=== PATIENT | female | born 2000 | race Caucasian/White ===

== ENCOUNTER 2025-01-28 09:27 | Outpatient (AMB) | payer OTHER, SELFPAY ==
[2025-01-28 09:45] VITALS: BP 120/72; PULSE 104; RESP 20; TEMP 36.4; O2SAT 97; BMI 28.3
--- NOTE | 2025-01-28 09:45 | AMB.OBINITIA ---
Vital Signs 01/28/25 09:45 Height 1.68 m Height Method Measured Weight 79.605 kg Weight Measurement Method Standing Scale BMI 28.3 BP 120/72 Blood Pressure Source Automatic Cuff Blood Pressure Location Left Upper Arm Position Sitting Respiration 20 Pulse 104 H Pulse Source Monitor Temp 97.6 F Temp Source Oral Pulse Oximetry (%) 97 Oxygen Delivery Method Room Air Allergies/Home Meds Allergies & Medications Allergies No Known Allergies Allergy (Verified 01/28/25 09:46) Medication Reconciliation No Known Home Medications 01/28/25 [History Confirmed 01/28/25] Intake Visit Data Collection New Patient or Established: New Patient (never been to [facility]) Reason for Visit:: OB TRANSFER Seen by Clinical Staff ONLY (RN/MA): No [place] Rafting Guide Required: No Do You Feel Safe at Home: Yes Authorities Contacted: N/A PCP or OBGYN visit in last 3 months: Yes Hx Now: Yes Are you currently on any form of Control: No Last menstrual period: 06/09/24 Pain Present Currently: No Pain Scale Used: Amaro-Archibald/Numerical Pain scale:: 0 Smoking Status Smoking Status: Never smoker Questionnaires Covid-19 Vaccine Questionnaire Has patient been vacinated for Covid-19 Have you been vacinated for Covid-19: No PHQ-9 PHQ-2 Over the last 2 weeks, how often have you been bothered by any of the following problems? 1. Little interest or pleasure in doing things: not at all 2. Feeling down, depressed, or hopeless: not at all Total score: 0 PHQ-9 3. Trouble falling or staying asleep, or sleeping too much: Not at all 4. Feeling tired or having little energy: Not at all 5. Poor appetite or overeating: Not at all 6. Feeling bad about yourself - or that you are a failure or have let yourself or your family down: Not at all 7. Trouble concentrating on things, such as reading the newspaper or watching television: Not at all 8. Moving or speaking so slowly that other people could have noticed? - Or the opposite - being so fidgety or restless that you have been moving around a lot more than usual: not at all 9. Thoughts that you would be better off or of hurting yourself in some way: Not at all Total score: 0 Source: Developed by Drs. Sylvester Abarca, Ericka Velarde, Anish Schmitt and colleagues, with an educational lisa from [employer]. Depression screen completed yes Social History Living Situation History Marital Status: Lives With: Family Housing: House Tobacco History Smoking Status: Never smoker Second Hand Smoke Exposure: No Alcohol History Alcohol Intake: Never Domestic Abuse History Do You Feel Safe at Home: Yes History of Present Illness HPI Narrative This is a 24-year-old 4 para 2 for new OB appointment. Patient is a transfer from an office in [place]. No records available at this time.. Patient states that she has her records on her phone and that she is willing to print those records out. Patient denies any problems with the . She had mentioned that the baby had been growing small initially but with the last ultrasound the baby was had a normal weight. Patient reports that she is O- and that she received RhoGAM. She also reports that at her last visit the 1 hour GTT was normal. Last period June 09, 2024. Estimated due date March 13, 2025. Today patient is 33 weeks and 6 days. Denies social habits. Denies surgery. Denies chronic illness. Patient reports good movement. Denies any complaints of labor. OB Initial Visit OB Flowsheet OB Flowsheet Initial Weight: Not Recorded Date <del>?</del> EGA Weight Edema CTX Effacement BP Fundal ht Pres Dilation Effacement Station Visit Note Alb Glu FHR Mov 01/28/25 <del>?</del> 33w 2d 79.605 kg absent absent 120/72 34 cephalic 24-year-old 4 para 2 for new OB appointment. Patient has been seen in [place] for care. No records available at this time. However patient reports that her records on her phone and she will get those printed out. Patient reports that her has been uneventful. Patient is Rh- and she received RhoGAM. Patient also reported that her 1 hour GTT and carrier screens were negative. That all her labs were normal. Return in 2 weeks visit 145 active Menstrual History Menstrual reliability: definite Flow: normal Menstrual regularity: regular Monthly: Yes Age at menarche: 10 On control pills at conception: No Associated symptoms (LMP): Reports fatigue and breast tenderness OB History : 4 Para: 2 Hx Total # of Abortions (Spontaneous & Elective): 1 # of Living Children: 2 Delivery History 1st : Child's name: KALEN date: 06/14/22 sex: female Delivery type: vaginal Delivery complications: NONE History of depression before or after : No 2nd : Child's name: MISSY date: 01/22/24 sex: female Delivery type: vaginal Delivery complications: NONE History of depression before or after : No Infection History & Risk Evaluation History of STDs: none HIV risk evaluation: low risk Hepatitis B risk evaluation: low risk Patient or partner has history of Genital Herpes: No Genetic Screening & History Genetic Screening/Teratology Counseling - Includes patient, baby's father, or anyone in either family with: 1. Patient's age 35 years or older as of estimated date of delivery: No 2. Thalassemia (Jordanian, Macanese, Mediterranean, or Background); MCV less than 80: No 3. Neural Tube Defect (Meningomyelocele, Spina Bifida, or Anencephaly): No 4. Congenital Heart Defect: No 5. Down Syndrome: No 6. Osmel-Sachs (Ashkenazi Voodoo, Cajun, Turkmen Jennings): No 7. Kirk Disease (Ashkenazi Voodoo): No 8. Familial Dysautonomia (Ashkenazi Voodoo): No 9. Sickle Cell Disease or Trait (): No 10. Hemophilia or other blood disorders: No 11. Muscular Dystrophy: No 12. Cystic Fibrosis: No 13. [place]'s Chorea: No 14. Mental Retardation/Autism: No 15. Other inherited genetic or chromosomal disorder: No 16. Maternal Metabolic Disorder (EG,TYPE 1 Diabetes, PKU): No 17. Patient or baby's father had a child with defects not listed above: No 18. Recurrent loss or a stillbirth: No 19. Medications (including supplements, vitamins, herbs or otc drugs)/illicit/recreational drugs/alcohol since last menstrual period: No 20. Any other: No Infection History 1. Live with someone with TB or exposed to TB: No 2. Rash or viral illness since last menstrual period: No 3. Hepatitis B,C: No Other (see comments) Source: [employer] [place] [place] Review of Systems Review of Systems Systems Reviewed: All systems reviewed, normal except as documented Constitutional Constitutional: Reports fatigue Endocrine Endocrine: Reports fatigue Exam General Limitations: no limitations General Appearance: alert, in no apparent distress, comfortable, cooperative, healthy appearing, well developed and well groomed Head Head exam: atraumatic, normocephalic and normal inspection Chest Chest inspection: Present normal inspection and symmetric chest wall rise Resp Respiratory exam: Present normal lung sounds bilaterally Card Cardiovascular exam: Present regular rate, normal rhythm and normal heart sounds Abdominal Abdominal exam: Present soft and normal bowel sounds Psych Psychiatric exam: Present normal affect and normal mood Office Procedures OB Clinic LOC & Office Proc's Nursing/Assessment Patient Status: Initial/New Patient OB Clinic Nursing Assessment: Medication Reconciliation, Update PMH in EMR and Vital Signs OB Clinic Coordination of Care: Complex Care and Chronic Disease 1-5, Consent,records obtained, informed consent, Education Simp Pt/Fam, Lab and Imaging orders, Results/Orders obtained and Staff clarify orders Special Needs: Heart tones Miscellaneous Interventions: Blood/Urine Collection New Patient Charge New Patient Point Assignment: [id number] New Patient Point Charge: SUPPLY COORDINATOR Level 5 (1159-[id number]) Assessment & Plan Diagnosis / Problem List (1) Encounter for supervision of normal in multigravida in third trimester: Status: Acute Plan Advised patient to obtain records. Increase fluids. Discussed labor precautions. Discussed kick count. Return in a week for GBS and OB check Additional Plan Follow Up: 1 Week (obc)
[2025-01-28 12:23] LABS: Bilirubin,Urine Clinitek Negative (Negative); Blood,Urine Clinitek Negative (Negative); Glucose, Urine Clinitek Negative (Negative); Ketones,Urine Clinitek Negative (Negative); Leukocyte Esterase,Urine Clin Trace (Negative); Nitrite,Urine Clinitek Negative (Negative); Protein,Urine Clinitek Negative (Neg - Trace); Specific Gravity,Urine Clin 1.015 (1.001-1.030); Urobilinogen,Urine Clinitek 0.2 mg/dL (0.0-1.0)
== END 2025-01-28 09:59 | disposition home or self-care (01) ==
LOC: HODSOBC 09:27
PROVIDERS: Supervising Provider Advanced Practice Midwife; Visit Provider Advanced Practice Midwife
DX: O09.893 Supervision of other high risk pregnancies, third trimester (principal); Z3A.33 33 weeks gestation of pregnancy; O26.893 Other specified pregnancy related conditions, third trimester; Z67.41 Type O blood, Rh negative; O09.293 Supervision of pregnancy with other poor reproductive or obstetric history, third trimester
CPT/HCPCS: 81001; 99205; G0463

== ENCOUNTER 2025-02-11 11:08 | Outpatient (AMB) | payer OTHER, SELFPAY ==
[2025-02-11 11:25] VITALS: BP 126/72; PULSE 124; RESP 22; TEMP 36.3; O2SAT 98; BMI 28.4
--- NOTE | 2025-02-11 11:25 | AMB.OBVISIT ---
Vital Signs 02/11/25 11:25 Height 1.68 m Height Method Stated Weight 80.343 kg Weight Measurement Method Standing Scale BMI 28.4 BP 126/72 Blood Pressure Source Automatic Cuff Blood Pressure Location Right Upper Arm Position Sitting Respiration 22 H Pulse 124 H Pulse Source Monitor Temp 97.3 F Temp Source Oral Pulse Oximetry (%) 98 Oxygen Delivery Method Room Air Allergies/Home Meds Allergies & Medications Allergies No Known Allergies Allergy (Verified 02/11/25 11:26) Medication Reconciliation fluconazole 150 mg tablet 150 mg PO .once 1 dose #1 tab 02/11/25 [Rx] metronidazole 0.75 % (37.5 mg/5 gram) vaginal gel 1 appful vaginal QDAY 5 days #70 grams 02/11/25 [Rx] Intake Visit Data Collection New Patient or Established: Established Patient (seen at [facility] within 3 years) Reason for Visit:: - Routine care visit - Little bit of contractions in waiting room that went away - Weird smell down there in vaginal area Seen by Clinical Staff ONLY (RN/MA): No Heel Breaster Required: No Do You Feel Safe at Home: Yes Authorities Contacted: N/A PCP or OBGYN visit in last 3 months: Yes Hx Now: Yes Are you currently on any form of Control: No Pain Present Currently: No Pain Scale Used: Amaro-Archibald/Numerical Pain scale:: 0 Smoking Status Smoking Status: Never smoker Questionnaires Covid-19 Vaccine Questionnaire Has patient been vacinated for Covid-19 Have you been vacinated for Covid-19: Yes PHQ-9 PHQ-2 Over the last 2 weeks, how often have you been bothered by any of the following problems? 1. Little interest or pleasure in doing things: not at all 2. Feeling down, depressed, or hopeless: not at all Total score: 0 PHQ-9 3. Trouble falling or staying asleep, or sleeping too much: Not at all 4. Feeling tired or having little energy: Not at all 5. Poor appetite or overeating: Not at all 6. Feeling bad about yourself - or that you are a failure or have let yourself or your family down: Not at all 7. Trouble concentrating on things, such as reading the newspaper or watching television: Not at all 8. Moving or speaking so slowly that other people could have noticed? - Or the opposite - being so fidgety or restless that you have been moving around a lot more than usual: not at all 9. Thoughts that you would be better off or of hurting yourself in some way: Not at all Total score: 0 Source: Developed by Drs. Sylvester Abarca, Ericka Velarde, Anish Schmitt and colleagues, with an educational lisa from [employer]. Depression screen completed yes Social History Living Situation History Lives With: Family Housing: House Tobacco History Smoking Status: Never smoker Second Hand Smoke Exposure: No Alcohol History Alcohol Intake: Never Domestic Abuse History Do You Feel Safe at Home: Yes History of Present Illness HPI Narrative - Samara Jasso is a 24-year-old presenting for care after transferring from [place] in the 3rd trimester. - is significant for Rh negative status; patient received RhoGam at 28 weeks. - Patient reports experiencing mild contractions while in the waiting room, which subsided. - Denies ongoing contractions or cramping. - Reports noticing a weird smell in the vaginal area. - Denies associated discharge or itching. - Previous pregnancies: - Both previous deliveries began with spontaneous rupture of membranes. - First child: 7 pounds, 4 ounces at . - Second child: 6 pounds, 11 ounces at . - Recently moved from [place] approximately one month ago due to 's work. - Confirms taking vitamins as prescribed. - Denies any other issues or concerns. No contractions/ LOF/VB, reports good FM No WEI/VC/RUQ/Epig pain Care OB Visit Log OB Flowsheet Initial Weight: Not Recorded Date <del>?</del> EGA Weight BP Alb Glu CTX Pres Fundal ht FHR Mov Dilation Station Effacement Hx Notes Visit Note 01/28/25 <del>?</del> 33w 2d 79.605 kg 120/72 absent cephalic 34 145 active 24-year-old 4 para 2 for new OB appointment. Patient has been seen in [place] for care. No records available at this time. However patient reports that her records on her phone and she will get those printed out. Patient reports that her has been uneventful. Patient is Rh- and she received RhoGAM. Patient also reported that her 1 hour GTT and carrier screens were negative. That all her labs were normal. Return in 2 weeks visit 02/11/25 <del>?</del> 35w 2d 80.343 kg 126/72 at approximately 35 weeks gestation, presents for routine care. Reports transient contractions that resolved spontaneously and notes a ?weird smell? in the vaginal area without discharge or itching. Rh-negative; received RhoGam at 28 weeks. Transferred care from [place]. heart tones 148 bpm, reassuring. Plan: Prescriptions sent to [facility] to empirically treat for both bacterial vaginosis and yeast. Patient instructed to follow up in one week with YONATHAN Sanderson. GBS culture to be performed at 36 weeks. Reviewed labor precautions including onset of regular contractions every 5 minutes lasting over an hour. Provided routine education on labor signs, importance of nutrition, hydration, and rest. DANNA Calculator Estimated Delivery Date Method Current WG Current Estimate 03/16/25 LMP (Certain) 35w 2d Exam General General Appearance: alert, in no apparent distress and healthy appearing Head Head exam: atraumatic Neck Neck exam: Present normal inspection and trachea midline Chest Chest inspection: Present normal inspection and symmetric chest wall rise External exam: Present normal external exam; Absent tenderness Neuro Neurological exam: Present oriented X3 Psych Psychiatric exam: Present normal affect and normal mood Office Procedures OB Clinic LOC & Office Proc's Nursing/Assessment Patient Status: Established Patient OB Clinic Nursing Assessment: Medication Reconciliation, Update PMH in EMR and Vital Signs OB Clinic Coordination of Care: Complex Care and Chronic Disease 1-5, Consent,records obtained, informed consent, Education Simp Pt/Fam, Lab and Imaging orders, Results/Orders obtained and Staff clarify orders Special Needs: Heart tones Established Patient Charge Established Patient Point Assignment: 135 Established Patient Point Charge: EP Level 4 (120-155) Assessment & Plan Diagnosis / Problem List (1) Acute vaginitis: Status: Acute (2) Encounter for supervision of normal in multigravida in third trimester: Status: Acute Plan Problem List - - Rh negative status - Vaginal odor Assessment - at approximately 35 weeks gestation - Rh negative status, received RhoGam at 28 weeks - Transferred care from [place] in 3rd trimester - Reports mild, transient contractions - heart rate 148 bpm, within normal limits - Patient reports unusual vaginal odor Plan - Prescribe combination of two medications for vaginal odor, covering for bacterial vaginosis and yeast infection - One week follow-up with YONATHAN Sanderson - Group B Streptococcus (GBS) culture at 36 weeks - Instructions provided for when to come to hospital for labor (contractions every 5 minutes for over an hour) - Prescriptions to be sent to [facility] Educated the patient on labor signs, including regular contractions, lower back pain, and changes in vaginal discharge. Advised avoiding heavy lifting and getting adequate rest. Instructed to contact the office immediately if any signs occur. Discussed the importance of a balanced diet rich in folic acid, iron, and calcium, and provided a list of recommended and to-avoid foods. Emphasized avoiding high-sugar foods to reduce gestational diabetes risk. Encouraged hydration and frequent, small meals for energy..
== END 2025-02-11 11:34 | disposition home or self-care (01) ==
LOC: HODSOBC 11:08
PROVIDERS: PCP Obstetrics & Gynecology; Referring Provider Obstetrics & Gynecology; Supervising Provider Obstetrics & Gynecology; Visit Provider Obstetrics & Gynecology
DX: O09.893 Supervision of other high risk pregnancies, third trimester (principal); O23.593 Infection of other part of genital tract in pregnancy, third trimester; N76.0 Acute vaginitis; B37.31 Acute candidiasis of vulva and vagina; Z3A.35 35 weeks gestation of pregnancy; Z67.91 Unspecified blood type, Rh negative
CPT/HCPCS: 99214; G0463

== ENCOUNTER 2025-02-18 11:37 | Outpatient (AMB) | payer OTHER, SELFPAY ==
[2025-02-18 12:02] VITALS: BP 119/75; PULSE 107; RESP 22; TEMP 36.1; O2SAT 97; BMI 28.3
--- NOTE | 2025-02-18 12:02 | AMB.OBVISIT ---
Vital Signs 02/18/25 12:02 Height 1.68 m Height Method Stated Weight 80.002 kg Weight Measurement Method Standing Scale BMI 28.3 BP 119/75 Blood Pressure Source Automatic Cuff Blood Pressure Location Right Upper Arm Position Sitting Respiration 22 H Pulse 107 H Pulse Source Monitor Temp 97 F Temp Source Oral Pulse Oximetry (%) 97 Oxygen Delivery Method Room Air Allergies/Home Meds Allergies & Medications Allergies No Known Allergies Allergy (Verified 02/18/25 12:03) Medication Reconciliation fluconazole 150 mg tablet 150 mg PO .once 1 dose #1 tab 02/11/25 [Rx Confirmed 02/18/25] Intake Visit Data Collection New Patient or Established: Established Patient (seen at [facility] within 3 years) Reason for Visit:: OBC Seen by Clinical Staff ONLY (RN/MA): No Immigration Consultant Required: No Do You Feel Safe at Home: Yes Authorities Contacted: N/A PCP or OBGYN visit in last 3 months: Yes Hx Now: Yes Are you currently on any form of Control: No Pain Present Currently: No Pain Scale Used: Amaro-Archibald/Numerical Pain scale:: 0 Smoking Status Smoking Status: Never smoker Questionnaires Covid-19 Vaccine Questionnaire Has patient been vacinated for Covid-19 Have you been vacinated for Covid-19: Yes PHQ-9 PHQ-2 Over the last 2 weeks, how often have you been bothered by any of the following problems? 1. Little interest or pleasure in doing things: not at all 2. Feeling down, depressed, or hopeless: not at all Total score: 0 PHQ-9 3. Trouble falling or staying asleep, or sleeping too much: Not at all 4. Feeling tired or having little energy: Not at all 5. Poor appetite or overeating: Not at all 6. Feeling bad about yourself - or that you are a failure or have let yourself or your family down: Not at all 7. Trouble concentrating on things, such as reading the newspaper or watching television: Not at all 8. Moving or speaking so slowly that other people could have noticed? - Or the opposite - being so fidgety or restless that you have been moving around a lot more than usual: not at all 9. Thoughts that you would be better off or of hurting yourself in some way: Not at all Total score: 0 Source: Developed by Drs. Sylvester Abarca, Ericka Velarde, Anish Schmitt and colleagues, with an educational lisa from [employer]. Depression screen completed yes Social History Living Situation History Lives With: Family Housing: House Tobacco History Smoking Status: Never smoker Second Hand Smoke Exposure: No Alcohol History Alcohol Intake: Never Domestic Abuse History Do You Feel Safe at Home: Yes Care OB Visit Log OB Flowsheet Initial Weight: Not Recorded Date <del>?</del> EGA Weight BP Alb Glu CTX Pres Fundal ht FHR Mov Dilation Station Effacement Hx Notes Visit Note 01/28/25 <del>?</del> 33w 2d 79.605 kg 120/72 absent cephalic 34 145 active 24-year-old 4 para 2 for new OB appointment. Patient has been seen in [place] for care. No records available at this time. However patient reports that her records on her phone and she will get those printed out. Patient reports that her has been uneventful. Patient is Rh- and she received RhoGAM. Patient also reported that her 1 hour GTT and carrier screens were negative. That all her labs were normal. Return in 2 weeks visit 02/11/25 <del>?</del> 35w 2d 80.343 kg 126/72 at approximately 35 weeks gestation, presents for routine care. Reports transient contractions that resolved spontaneously and notes a ?weird smell? in the vaginal area without discharge or itching. Rh-negative; received RhoGam at 28 weeks. Transferred care from [place]. heart tones 148 bpm, reassuring. Plan: Prescriptions sent to [facility] to empirically treat for both bacterial vaginosis and yeast. Patient instructed to follow up in one week with YONATHAN Sanderson. GBS culture to be performed at 36 weeks. Reviewed labor precautions including onset of regular contractions every 5 minutes lasting over an hour. Provided routine education on labor signs, importance of nutrition, hydration, and rest. 02/18/25 <del>?</del> 36w 2d 80.002 kg 119/75 occasional cephalic 36 140 active 1 -3 50 increased pressure, ligament pain and cramps. fetus active, increase vag discharge. patient did not p/u meds,denies leaking or bleeding GBS and nuswab today. advised to p/u meds and start them, labor precaution and danger s/s discussed, fkc bid,rtc 1 week obc GBS and nuswab today. advised to p/u meds and start them, labor precaution and danger s/s discussed, fkc bid,rtc 1 week obc, do growth sono NV, patient will call previous clinic for lab results DANNA Calculator Estimated Delivery Date Method Current WG Current Estimate 03/16/25 LMP (Certain) 36w 2d Notes Visit Date: 02/18/25 Last Updated by: Elyssa Sanderson CNM 24 yo . lmp 06/09/24. EDC 03/16/25 Office Procedures OB Clinic LOC & Office Proc's Nursing/Assessment Patient Status: Established Patient OB Clinic Nursing Assessment: Medication Reconciliation, Update PMH in EMR and Vital Signs OB Clinic Coordination of Care: Complex Care and Chronic Disease 1-5, Consent,records obtained, informed consent, Education Simp Pt/Fam, Lab and Imaging orders, Results/Orders obtained and Staff clarify orders Special Needs: Heart tones Miscellaneous Interventions: Pelvic Culture Established Patient Charge Established Patient Point Assignment: 145 Established Patient Point Charge: EP Level 4 (120-155) Assessment & Plan Diagnosis / Problem List (1) Encounter for supervision of normal in multigravida in third trimester: Status: Acute (2) Acute vaginitis: Status: Acute Plan gbs and nuswab today. discuss labor precaution, fkc bid. comfort measure. advised to p/u medication as ordered. rtc 1 week Additional Plan Follow Up: 1 Week (obc)
== END 2025-02-18 12:20 | disposition home or self-care (01) ==
LOC: HODSOBC 11:37
PROVIDERS: PCP Obstetrics & Gynecology; Referring Provider Obstetrics & Gynecology; Supervising Provider Advanced Practice Midwife; Visit Provider Advanced Practice Midwife
DX: O09.893 Supervision of other high risk pregnancies, third trimester (principal); Z3A.36 36 weeks gestation of pregnancy; O23.593 Infection of other part of genital tract in pregnancy, third trimester; N76.0 Acute vaginitis; Z36.85 Encounter for antenatal screening for Streptococcus B
CPT/HCPCS: 99214; G0463

== ENCOUNTER 2025-02-25 09:13 | Outpatient (AMB) | payer OTHER, SELFPAY ==
[2025-02-25 09:26] VITALS: BP 115/72; PULSE 111; RESP 18; TEMP 36.2; O2SAT 98; BMI 28.0
--- NOTE | 2025-02-25 09:26 | AMB.OBVISIT ---
Vital Signs 02/25/25 09:26 Height 1.68 m Height Method Stated Weight 79.038 kg Weight Measurement Method Standing Scale BMI 28.0 BP 115/72 Blood Pressure Source Automatic Cuff Blood Pressure Location Left Upper Arm Position Sitting Respiration 18 Pulse 111 H Pulse Source Monitor Temp 97.2 F Temp Source Oral Pulse Oximetry (%) 98 Oxygen Delivery Method Room Air Allergies/Home Meds Allergies & Medications Allergies No Known Allergies Allergy (Verified 02/25/25 09:27) Medication Reconciliation fluconazole 150 mg tablet 150 mg PO .once 1 dose #1 tab 02/11/25 [Rx Confirmed 02/25/25] Intake Visit Data Collection New Patient or Established: Established Patient (seen at [facility] within 3 years) Reason for Visit:: OBC Seen by Clinical Staff ONLY (RN/MA): No Lean Manager Required: No Do You Feel Safe at Home: Yes Authorities Contacted: N/A PCP or OBGYN visit in last 3 months: Yes Hx Now: Yes Are you currently on any form of Control: No Pain Present Currently: No Pain Scale Used: Amaro-Archibald/Numerical Pain scale:: 0 Smoking Status Smoking Status: Never smoker Questionnaires Covid-19 Vaccine Questionnaire Has patient been vacinated for Covid-19 Have you been vacinated for Covid-19: Yes PHQ-9 PHQ-2 Over the last 2 weeks, how often have you been bothered by any of the following problems? 1. Little interest or pleasure in doing things: not at all 2. Feeling down, depressed, or hopeless: not at all Total score: 0 PHQ-9 3. Trouble falling or staying asleep, or sleeping too much: Not at all 4. Feeling tired or having little energy: Not at all 5. Poor appetite or overeating: Not at all 6. Feeling bad about yourself - or that you are a failure or have let yourself or your family down: Not at all 7. Trouble concentrating on things, such as reading the newspaper or watching television: Not at all 8. Moving or speaking so slowly that other people could have noticed? - Or the opposite - being so fidgety or restless that you have been moving around a lot more than usual: not at all 9. Thoughts that you would be better off or of hurting yourself in some way: Not at all Total score: 0 If you checked off any problems, how difficult have these problems made it for you to do your work, take care of things at home, or get along with other people?: not difficult at all Source: Developed by Drs. Sylvester Abarca, Ericka Velarde, Anish Schmitt and colleagues, with an educational lisa from [employer]. Depression screen completed yes Social History Living Situation History Lives With: Family Housing: House Tobacco History Smoking Status: Never smoker Second Hand Smoke Exposure: No Alcohol History Alcohol Intake: Never Domestic Abuse History Do You Feel Safe at Home: Yes Care OB Visit Log OB Flowsheet Initial Weight: Not Recorded Date <del>?</del> EGA Weight BP Alb Glu CTX Pres Fundal ht FHR Mov Dilation Station Effacement Hx Notes Visit Note 01/28/25 <del>?</del> 33w 2d 79.605 kg 120/72 absent cephalic 34 145 active 24-year-old 4 para 2 for new OB appointment. Patient has been seen in [place] for care. No records available at this time. However patient reports that her records on her phone and she will get those printed out. Patient reports that her has been uneventful. Patient is Rh- and she received RhoGAM. Patient also reported that her 1 hour GTT and carrier screens were negative. That all her labs were normal. Return in 2 weeks visit 02/11/25 <del>?</del> 35w 2d 80.343 kg 126/72 at approximately 35 weeks gestation, presents for routine care. Reports transient contractions that resolved spontaneously and notes a ?weird smell? in the vaginal area without discharge or itching. Rh-negative; received RhoGam at 28 weeks. Transferred care from [facility]. heart tones 148 bpm, reassuring. Plan: Prescriptions sent to [facility] to empirically treat for both bacterial vaginosis and yeast. Patient instructed to follow up in one week with YONATHAN Sanderson. GBS culture to be performed at 36 weeks. Reviewed labor precautions including onset of regular contractions every 5 minutes lasting over an hour. Provided routine education on labor signs, importance of nutrition, hydration, and rest. 02/18/25 <del>?</del> 36w 2d 80.002 kg 119/75 occasional cephalic 36 140 active 1 -3 50 increased pressure, ligament pain and cramps. fetus active, increase vag discharge. patient did not p/u meds,denies leaking or bleeding GBS and nuswab today. advised to p/u meds and start them, labor precaution and danger s/s discussed, fkc bid,rtc 1 week obc GBS and nuswab today. advised to p/u meds and start them, labor precaution and danger s/s discussed, fkc bid,rtc 1 week obc, do growth sono NV, patient will call previous clinic for lab results 02/25/25 <del>?</del> 37w 2d 79.038 kg 115/72 occasional cephalic 37 145 active fetus active, increased pressure, no leaking or bleeding, reviewed labs on lab portal with patient schedule OB sono for s/d and evaluate heart, discuss labor precaution, fkc bid. , increase fluid,rtc 1 week obc DANNA Calculator Estimated Delivery Date Method Current WG Current Estimate 03/16/25 LMP (Certain) 37w 2d Notes Visit Date: 02/25/25 Last Updated by: Elyssa Sanderson CNM 26 yo ,sono 10/27/14 IUO 19w5. EDC 03/16/25. LMP 06/10/24, cbc: 1237/275, RPR::NR, 1 hr gtt wnl, NIPT-, O+,abs-, hBSAG-,HC-,HIV-, rub imm, gc/ct- Visit Date: 02/18/25 Last Updated by: Elyssa Sanderson CNM 24 yo . lmp 06/09/24. EDC 03/16/25 Office Procedures OB Clinic LOC & Office Proc's Nursing/Assessment Patient Status: Established Patient OB Clinic Nursing Assessment: Medication Reconciliation, Update PMH in EMR and Vital Signs OB Clinic Coordination of Care: Education Complex Pt/Fam, Consent,records obtained, informed consent, Results/Orders obtained and Staff clarify orders Special Needs: Heart tones Established Patient Charge Established Patient Point Assignment: 100 Established Patient Point Charge: EP Level 3 (80-115) Assessment & Plan Diagnosis / Problem List (1) Uterine size date discrepancy: Status: Acute (2) Encounter for supervision of high risk in third trimester, antepartum: Status: Acute Plan Schedule OB sono for growth and wellbeing. Discussed labor precautions and kick counts twice a day. Hydrate. I reviewed labs with patient from her portal. Return in a week OB check. GBS is pending Additional Plan Follow Up: 1 Week (obc)
== END 2025-02-25 09:50 | disposition home or self-care (01) ==
LOC: HODSOBC 09:13
PROVIDERS: PCP Obstetrics & Gynecology; Referring Provider Obstetrics & Gynecology; Supervising Provider Obstetrics & Gynecology; Visit Provider Obstetrics & Gynecology
DX: O09.893 Supervision of other high risk pregnancies, third trimester (principal); Z3A.37 37 weeks gestation of pregnancy; O26.843 Uterine size-date discrepancy, third trimester
CPT/HCPCS: 99213; G0463

== ENCOUNTER → 2025-02-26 | Outpatient (CLI) | payer OTHER, SELFPAY ==
--- NOTE | 2025-02-26 16:06 | XR_ITS ---
Examination: Complete OB ultrasound greater than 14 weeks Date and time of exam: February 26, 2025, 1611 hours INDICATIONS: Diagnosis high risk Findings: Viable intrauterine single fetus with single amniotic sac presentation Vertex spine maternal right. Cardiac motion 145 BPM. Placenta right lateral grade 2. Umbilical cord insertion seen. Amniotic fluid index 10.7 cm Ovaries obscured by bowel gas . Composite estimated gestational age based on BPD, head circumference, abdominal circumference, femur length is 36 weeks 4 days Estimated weight 2822 g. Survey of intracranial anatomy, spinal anatomy, abdominal anatomy, four-chamber heart performed with no abnormalities identified. Impression: Viable intrauterine gestation vertex presentation.
== END | disposition home or self-care (01) ==
LOC: CDIM 15:59
PROVIDERS: Referring Provider Advanced Practice Midwife; Visit Provider Advanced Practice Midwife
DX: O09.93 Supervision of high risk pregnancy, unspecified, third trimester (principal)
CPT/HCPCS: 76805

== ENCOUNTER 2025-03-03 10:09 | Outpatient (AMB) | payer OTHER, SELFPAY ==
[2025-03-03 10:20] VITALS: BP 119/76; PULSE 120; RESP 18; TEMP 36.2; O2SAT 98; BMI 28.0
--- NOTE | 2025-03-03 10:20 | OBCLNT_ITS ---
Vital Signs 03/03/25 10:20 Height 1.68 m Height Method Stated Weight 79.095 kg Weight Measurement Method Standing Scale BMI 28.0 BP 119/76 Blood Pressure Source Automatic Cuff Blood Pressure Location Left Upper Arm Position Sitting Respiration 18 Pulse 120 H Pulse Source Monitor Temp 97.2 F Temp Source Oral Pulse Oximetry (%) 98 Oxygen Delivery Method Room Air Allergies/Home Meds Allergies & Medications Allergies No Known Allergies Allergy (Verified 03/03/25 10:21) Medication Reconciliation fluconazole 150 mg tablet 150 mg PO .once 1 dose #1 tab 02/11/25 [Rx Confirmed 03/03/25] Intake Visit Data Collection New Patient or Established: Established Patient (seen at [facility] within 3 years) Reason for Visit:: OBC Seen by Clinical Staff ONLY (RN/MA): No Precision Optics Technician Required: No Do You Feel Safe at Home: Yes Authorities Contacted: N/A PCP or OBGYN visit in last 3 months: Yes Date of Last PCP or OBGYN visit: 02/25/25 Hx Now: Yes Are you currently on any form of Control: No Pain Present Currently: No Pain Scale Used: Amaro-Archibald/Numerical Pain scale:: 0 Smoking Status Smoking Status: Never smoker Questionnaires Covid-19 Vaccine Questionnaire Has patient been vacinated for Covid-19 Have you been vacinated for Covid-19: No PHQ-9 PHQ-2 Over the last 2 weeks, how often have you been bothered by any of the following problems? 1. Little interest or pleasure in doing things: not at all 2. Feeling down, depressed, or hopeless: not at all Total score: 0 PHQ-9 3. Trouble falling or staying asleep, or sleeping too much: Not at all 4. Feeling tired or having little energy: Not at all 5. Poor appetite or overeating: Not at all 6. Feeling bad about yourself - or that you are a failure or have let yourself or your family down: Not at all 7. Trouble concentrating on things, such as reading the newspaper or watching television: Not at all 8. Moving or speaking so slowly that other people could have noticed? - Or the opposite - being so fidgety or restless that you have been moving around a lot more than usual: not at all 9. Thoughts that you would be better off or of hurting yourself in some way: Not at all Total score: 0 If you checked off any problems, how difficult have these problems made it for you to do your work, take care of things at home, or get along with other people?: not difficult at all Source: Developed by Drs. Sylvester Abarca, Ericka Velarde, Anish Schmitt and colleagues, with an educational lisa from [employer]. Depression screen completed yes Social History Living Situation History Lives With: Family Housing: House Tobacco History Smoking Status: Never smoker Second Hand Smoke Exposure: No Alcohol History Alcohol Intake: Never Domestic Abuse History Do You Feel Safe at Home: Yes Care OB Visit Log OB Flowsheet Initial Weight: Not Recorded Date -?-?-?-?-?-?-?-?-?-?-?-?- EGA Weight BP Alb Glu CTX Pres Fundal ht FHR Mov Dilation Station Effacement Hx Notes Visit Note 01/28/25 -?-?-?-?-?-?-?-?-?-?-?-?- 33w 2d 79.605 kg 120/72 absent cephalic 34 145 active 24-year-old 4 para 2 for new OB appointment. Patient has been seen in [place] for care. No records available at this time. However patient reports that her records on her phone and she will get those printed out. Patient reports that her has been uneventful. Patient is Rh- and she received RhoGAM. Patient also reported that her 1 hour GTT and carrier screens were negative. That all her labs were normal. Return in 2 weeks visit 02/11/25 -?-?-?-?-?-?-?-?-?-?-?-?- 35w 2d 80.343 kg 126/72 at approximately 35 weeks gestation, presents for routine care. Reports transient contractions that resolved spontaneously and notes a ?weird smell? in the vaginal area without discharge or itching. Rh-negative; received RhoGam at 28 weeks. Transferred care from [facility]. heart tones 148 bpm, reassuring. Plan: Prescriptions sent to [facility] to empir ically treat for both bacterial vaginosis and yeast. Patient instructed to follow up in one week with YONATHAN Sanderson. GBS culture to be performed at 36 weeks. Reviewed labor precautions including onset of regular contractions every 5 minutes lasting over an hour. Provided routine education on labor signs, importance of nutrition, hydration, and rest. 02/18/25 -?-?-?-?-?-?-?-?-?-?-?-?- 36w 2d 80.002 kg 119/75 occasional cephalic 36 140 active 1 -3 50 increased pressure, ligament pain and cramps. fetus active, increase vag discharge. patient did not p/u meds,denies leaking or bleeding GBS and nuswab today. advised to p/u meds and start them, labor precaution and danger s/s discussed, fkc bid,rtc 1 week obc GBS and nuswab today. advise d to p/u meds and start them, labor precaution and danger s/s discussed, fkc bid,rtc 1 week obc, do growth sono NV, patient will call previous clinic for lab results 02/25/25 -?-?-?-?-?-?-?-?-?-?-?-?- 37w 2d 79.038 kg 115/72 occasional cephalic 37 145 active fetus active, increased pressure, no leaking or bleeding, reviewed labs on lab portal with patient schedule OB sono for s/d and evaluate heart, discuss labor precaution, fkc bid. , increase fluid,rtc 1 week obc 03/03/25 -?-?-?-?-?-?-?-?-?-?-?-?- 38w 1d 79.095 kg 119/76 occasional cephalic 38 156 active fetus active, denies LOF/VN/ROM, pressure disc uss GBS+. discuss labor precaution and ER precaution, FKC BID and danger s/s reviewed, rtc 1 wk obc DANNA Calculator Estimated Delivery Date Method Current WG Current Estimate 03/16/25 LMP (Certain) 38w 1d Notes Visit Date: 03/03/25 Last Updated by: Elyssa Sanderson CNM 03/03:GBS+ Visit Date: 02/25/25 Last Updated by: Elyssa Snaderson CNM 26 yo ,sono 10/27/14 IUO 19w5. EDC 03/16/25. LMP 06/10/24, cbc: , RPR::NR, 1 hr gtt wnl, NIPT-, O+,abs-, hBSAG-,HC-,HIV-, rub imm, gc/ct- Visit Date: 02/18/25 Last Updated by: Elyssa Sanderson, YONATHAN 24 yo . lmp 06/09/24. EDC 03/16/25 Office Procedures OB Clinic LOC & Office Proc's Nursing/Assessment Patient Status: Established Patient OB Clinic Nursing Assessment: Medication Reconciliation, Update PMH in EMR and Vital Signs OB Clinic Coordination of Care: Consent,records obtained, informed consent, Education Simp Pt/Fam, Lab and Imaging orders, Results/Orders obtained and Staff clarify orders Special Needs: Heart tones Established Patient Charge Established Patient Point Assignment: 110 Established Patient Point Charge: EP Level 3 (80-115) Assessment & Plan Diagnosis / Problem List (1) Encounter for supervision of high risk in third trimester, antepartum: Status: Acute Plan discuss GBS+.treat in labor. discuss labor precaution, fkc bid. discuss ER precaution, rtc 1 week obc Additional Plan Follow Up: 1 Week (obc)
== END 2025-03-03 11:17 | disposition home or self-care (01) ==
LOC: HODSOBC 10:09
PROVIDERS: Supervising Provider Advanced Practice Midwife; Visit Provider Advanced Practice Midwife
DX: O09.893 Supervision of other high risk pregnancies, third trimester (principal); O99.820 Streptococcus B carrier state complicating pregnancy; Z3A.38 38 weeks gestation of pregnancy
CPT/HCPCS: 99213; G0463

== ENCOUNTER 2025-03-12 10:13 | Outpatient (AMB) | payer OTHER, SELFPAY ==
[2025-03-12 10:24] VITALS: BP 114/76; PULSE 110; RESP 17; TEMP 36.4; O2SAT 96; BMI 28.6
--- NOTE | 2025-03-12 10:24 | AMB.OBVISIT ---
Vital Signs 03/12/25 10:24 Height 1.68 m Height Method Measured Weight 80.91 kg Weight Measurement Method Standing Scale BMI 28.6 BP 114/76 Blood Pressure Source Automatic Cuff Blood Pressure Location Right Upper Arm Position Sitting Respiration 17 Pulse 110 H Pulse Source Monitor Temp 97.6 F Temp Source Temporal Artery Scan Pulse Oximetry (%) 96 Oxygen Delivery Method Room Air Allergies/Home Meds Allergies & Medications Allergies No Known Allergies Allergy (Verified 03/12/25 10:24) Medication Reconciliation mv-mn no.97-folic 180 mcg-dha 25 mg-herb no.293 25 mg chewable tablet (Alive Daily Support ) tab PO 03/12/25 [History Confirmed 03/12/25] Intake Visit Data Collection New Patient or Established: Established Patient (seen at [facility] within 3 years) Reason for Visit:: OBC Seen by Clinical Staff ONLY (RN/MA): No Tank Truck Loader Required: No Do You Feel Safe at Home: Yes Authorities Contacted: N/A PCP or OBGYN visit in last 3 months: Yes Date of Last PCP or OBGYN visit: 03/03/25 Hx Now: Yes Are you currently on any form of Control: No Pain Present Currently: No Pain Scale Used: Amaro-Archibald/Numerical Pain scale:: 0 Smoking Status Smoking Status: Never smoker Questionnaires Covid-19 Vaccine Questionnaire Has patient been vacinated for Covid-19 Have you been vacinated for Covid-19: No PHQ-9 PHQ-2 Over the last 2 weeks, how often have you been bothered by any of the following problems? 1. Little interest or pleasure in doing things: not at all 2. Feeling down, depressed, or hopeless: not at all Total score: 0 PHQ-9 3. Trouble falling or staying asleep, or sleeping too much: Not at all 4. Feeling tired or having little energy: Not at all 5. Poor appetite or overeating: Not at all 6. Feeling bad about yourself - or that you are a failure or have let yourself or your family down: Not at all 7. Trouble concentrating on things, such as reading the newspaper or watching television: Not at all 8. Moving or speaking so slowly that other people could have noticed? - Or the opposite - being so fidgety or restless that you have been moving around a lot more than usual: not at all 9. Thoughts that you would be better off or of hurting yourself in some way: Not at all Total score: 0 If you checked off any problems, how difficult have these problems made it for you to do your work, take care of things at home, or get along with other people?: not difficult at all Source: Developed by Drs. Sylvester Abarca, Ericka Velarde, Anish Schmitt and colleagues, with an educational lisa from [email or web address]. Depression screen completed yes Social History Living Situation History Lives With: Family Housing: House Tobacco History Smoking Status: Never smoker Second Hand Smoke Exposure: No Alcohol History Alcohol Intake: Never Domestic Abuse History Do You Feel Safe at Home: Yes History of Present Illness HPI Narrative Samara Jasso, , presents for routine visit at 39 weeks and 3 days gestation. No contractions, LOF, VB and reports good FM. Denies WEI, VC, and epigastric pain. - Samara Jasso is a 24-year-old at 39 weeks and 3 days gestation presenting for a routine visit. - Estimated due date: 03/16/2025 - Group B strep culture: positive - Patient denies: - Contractions - Leakage of fluid - Vaginal bleeding - movement: present - Patient reports normal symptoms Laboratory, Imaging, and Diagnostic Test Results - Group B strep culture: Positive - Ultrasound (02/26/2025): - Gestational age: 36 weeks and 4 days - Estimated weight: 2822 grams - Presentation: Vertex - Anatomy survey: Normal Care OB Visit Log OB Flowsheet Initial Weight: Not Recorded Date <del>?</del> EGA Weight BP Alb Glu CTX Pres Fundal ht FHR Mov Dilation Station Effacement Hx Notes Visit Note 01/28/25 <del>?</del> 33w 2d 79.605 kg 120/72 absent cephalic 34 145 active 24-year-old 4 para 2 for new OB appointment. Patient has been seen in [place] for care. No records available at this time. However patient reports that her records on her phone and she will get those printed out. Patient reports that her has been uneventful. Patient is Rh- and she received RhoGAM. Patient also reported that her 1 hour GTT and carrier screens were negative. That all her labs were normal. Return in 2 weeks visit 02/11/25 <del>?</del> 35w 2d 80.343 kg 126/72 at approximately 35 weeks gestation, presents for routine care. Reports transient contractions that resolved spontaneously and notes a ?weird smell? in the vaginal area without discharge or itching. Rh-negative; received RhoGam at 28 weeks. Transferred care from [place]. heart tones 148 bpm, reassuring. Plan: Prescriptions sent to [facility] to empirically treat for both bacterial vaginosis and yeast. Patient instructed to follow up in one week with YONATHAN Sanderson. GBS culture to be performed at 36 weeks. Reviewed labor precautions including onset of regular contractions every 5 minutes lasting over an hour. Provided routine education on labor signs, importance of nutrition, hydration, and rest. 02/18/25 <del>?</del> 36w 2d 80.002 kg 119/75 occasional cephalic 36 140 active 1 -3 50 increased pressure, ligament pain and cramps. fetus active, increase vag discharge. patient did not p/u meds,denies leaking or bleeding GBS and nuswab today. advised to p/u meds and start them, labor precaution and danger s/s discussed, fkc bid,rtc 1 week obc GBS and nuswab today. advised to p/u meds and start them, labor precaution and danger s/s discussed, fkc bid,rtc 1 week obc, do growth sono NV, patient will call previous clinic for lab results 02/25/25 <del>?</del> 37w 2d 79.038 kg 115/72 occasional cephalic 37 145 active fetus active, increased pressure, no leaking or bleeding, reviewed labs on lab portal with patient schedule OB sono for s/d and evaluate heart, discuss labor precaution, fkc bid. , increase fluid,rtc 1 week obc 03/03/25 <del>?</del> 38w 1d 79.095 kg 119/76 occasional cephalic 38 156 active fetus active, denies LOF/VN/ROM, pressure discuss GBS+. discuss labor precaution and ER precaution, FKC BID and danger s/s reviewed, rtc 1 wk obc 03/12/25 <del>?</del> 39w 3d 80.91 kg 114/76 occasional cephalic 40 154 active No CTX/LOF/VB, good FM. GBS positive, cephalic presentation. No more office visits. Induction scheduled 03/20 if no labor. Go to L&D for CTX/LOF/VB/?FM. GBS prophylaxis during labor. Admission labs (UA, CBC, RPR) to be done at hospital. DANNA Calculator Estimated Delivery Date Method Current WG Current Estimate 03/16/25 LMP (Certain) 39w 3d Notes Visit Date: 03/03/25 Last Updated by: Elyssa Sanderson CNM 03/03:GBS+ Visit Date: 02/25/25 Last Updated by: Elyssa Sanderson CNM 26 yo ,sono 10/[birth year]/14 IUO 19w5. EDC 03/16/25. LMP 06/10/24, cbc: 12/37/275, RPR::NR, 1 hr gtt wnl, NIPT-, O+,abs-, hBSAG-,HC-,HIV-, rub imm, gc/ct- Visit Date: 02/18/25 Last Updated by: Elyssa Sanderson CNM 24 yo . lmp 06/09/24. EDC 03/16/25 Exam General General Appearance: alert, in no apparent distress and healthy appearing Head Head exam: atraumatic Neck Neck exam: Present normal inspection and trachea midline Chest Chest inspection: Present normal inspection and symmetric chest wall rise External exam: Present normal external exam; Absent tenderness Neuro Neurological exam: Present oriented X3 Psych Psychiatric exam: Present normal affect and normal mood Office Procedures OB Clinic LOC & Office Proc's Nursing/Assessment Patient Status: Established Patient OB Clinic Nursing Assessment: Medication Reconciliation, Update PMH in EMR and Vital Signs OB Clinic Coordination of Care: Consent,records obtained, informed consent, 4+ Authorizations needed, Lab and Imaging orders and Staff clarify orders Special Needs: Heart tones Established Patient Charge Established Patient Point Assignment: 115 Established Patient Point Charge: EP Level 3 (80-115) Assessment & Plan Diagnosis / Problem List (1) Encounter for supervision of high risk in third trimester, antepartum: Status: Acute (2) Uterine size date discrepancy: Status: Acute Plan Problem List - , 39 weeks and 3 days gestation - Group B Streptococcus positive Assessment at 39 weeks and 3 days gestation presenting for routine visit. Estimated due date is 03/16/2025. Group B strep culture is positive. Recent ultrasound on 02/26/2025 showed measurements consistent with 36 weeks and 4 days, estimated weight of 2822 grams, normal anatomy survey, and vertex presentation. heart rate auscultated at 154 bpm, which is within normal limits. Patient denies contractions, leakage, or bleeding. Blood pressure has been stable throughout . Glucose tolerance test was normal. Plan - No more office appointments scheduled - Induction date set for March 20 as backup if labor does not start spontaneously - Patient to receive antibiotics during labor due to positive Group B Strep culture - Patient instructed to go to hospital 4th floor if experiencing contractions, leaking, bleeding, or decreased movement - All necessary tests including urine, blood work (CBC, RPR) to be done at hospital admission 1. Progress Reviewed gestational age, growth, and heart rate. Planned frequent visits (every 2 weeks until 36 weeks, then weekly). 2. Instructed patient to monitor movements and report decreases immediately. 3. Testing Counseled on routine third-trimester labs per guidelines. Discussed potential need for ultrasound or monitoring based on risk factors. 4. Preeclampsia Precaution Educated on preeclampsia signs: severe headache, vision changes, right upper quadrant pain, sudden swelling. Advised urgent reporting of symptoms and discussed blood pressure monitoring if high risk. 5. Labor Precautions Reviewed labor signs: regular contractions, pelvic pressure, back pain, bleeding, or fluid leakage. Instructed to seek immediate care for these symptoms. 6. Lifestyle and Delivery Preparation Reinforced vitamins, nutrition, and safe activity. Discussed plan, pain management, and . Advised on labor preparation (e.g., hospital bag) and expectations. 7. Psychosocial Support Assessed emotional well-being and offered resources for mental health or parenting support.
== END 2025-03-12 10:44 | disposition home or self-care (01) ==
LOC: HODSOBC 10:13
PROVIDERS: Supervising Provider Obstetrics & Gynecology; Visit Provider Obstetrics & Gynecology
DX: O09.893 Supervision of other high risk pregnancies, third trimester (principal); O26.843 Uterine size-date discrepancy, third trimester; O99.820 Streptococcus B carrier state complicating pregnancy; Z3A.39 39 weeks gestation of pregnancy
CPT/HCPCS: 99213; G0463

== ENCOUNTER 2025-03-17 16:17 | Inpatient (IN) | payer OTHER, SELFPAY ==
[2025-03-17] VITALS (16 sets, daily range): BP systolic 92–144; BP diastolic 41–93; PULSE 88–187; RESP 17–18; TEMP 36.7; O2SAT 98; BMI 28.7; BMI 29.0
[2025-03-17 16:59] LABS: Basophils # (Auto) 0.0 Thou/mm3 (0.0-0.2); Basophils % (Auto) 0 % (0-2.5); Eosinophils # (Auto) 0.0 Thou/mm3 (0.0-0.5); Eosinophils % (Auto) 0 % (0-10); Hematocrit 40.3 % (36.0-46.0); Hemoglobin 13.9 g/dL (12.0-16.0); Immature Granulocytes Auto 0.09 Thou/mm3 (0.00-0.00); Lymphocytes # (Auto) 1.1 Thou/mm3 (1.0-4.8); Lymphocytes % (Auto) 10 % (10-50); Mean Corpuscular HGB Conc 34.5 g/dl (31.0-37.0); Mean Corpuscular Hemoglobin 30.0 pg (25.0-35.0); Mean Corpuscular Volume 87 fL (80-100); Monocytes # (Auto) 0.5 Thou/mm3 (0.0-0.8); Monocytes % (Auto) 5 % (0-12); Neutrophils # (Auto) 9.3 Thou/mm3 (1.8-7.7); Neutrophils % (Auto) 84 % (37-80); Nucleated Red Blood Cell # 0.00 Thou/mm3 (0.00-0.00); Nucleated Red Blood Cell % 0 /100 WBC (0); Platelet Count 247 Thou/mm3 (140-440); RDW Standard Deviation 40.5 fL (36.4-46.3); Red Blood Count 4.64 Miln/mm3 (4.00-5.20); White Blood Count 11.0 Thou/mm3 (3.6-11.0)
[2025-03-17] MEDS: Ampicillin Inj 2,000 MG in SODIUM CHLORIDE 0.9% (POP) 100 ML 200 MG IV (17:12)
--- NOTE | 2025-03-17 17:15 | ESHP_ITS ---
Documentation for date of: 03/17/25 OB Labor/Induct. HPI History of Present Illness Chief complaint: labor pains : 4 Para: 2 Term pregnancies: 2 Living children: 2 History of Abortions: Spontaneous and Elective: 1 History of sections: No History of : No DANNA: 03/16/25 Gestational Age (weeks): 40 Gestational Age (days): 1 History of present illness: 24-year-old 4 para 2-0-1-2 with intrauterine at 40 weeks and 1 day presents to [facility] complaining of labor pains and is noted to be 7 cm. She denies any leaking or bleeding. She reports normal movement. She has care with [facility] OB clinic. She denies any problems during her . History of Present Narrative: See record for all other details about her history. Past Medical History Surgical History SURGICAL: Negative Section Meds Home Medications and Allergies Home Medications ?Medication ?Instructions ?Recorded ?Confirmed ?Type mv-mn no.97-folic 180 mcg-dha 25 tab PO 03/12/2503/12 History mg-herb no.293 25 mg chewable tablet (Alive Daily Support ) Allergies Allergy/AdvReac Type Severity Reaction Status Date / Time No Known Allergies Allergy Verified 03/12/25 10:24 OB Exam Physical Exam Vital signs: Temp Pulse Resp BP O2 Del Method 98.0 F 107 H 17 124/83 Room Air 03/17/25 16:29 03/17/25 16:49 03/17/25 16:29 03/17/25 16:49 03/17/25 16:29 Detailed Labor and Delivery Exam Dilation (cm): 10 Effacement (%): 100 station: 0 Membranes: ruptured Amniotic fluid: clear OB Results Labs 03/17/25 16:37 Impressions Impression: IUP 40w1d. Labor Anticipate
--- NOTE | 2025-03-17 17:38 | PD.LDDS ---
DS: Providers Provider Date of admission: 03/17/25 16:37 Primary care physician: Physician No Primary/Family Admitting Provider: Shamir Giordano MD Attending Provider on Admission: Shamir Giordano MD Attending Provider on DC: Shamir Giordano MD Discharging Provider: Shamir Giordano MD DS: Diagnosis Problem List Completed Was Problem List Reviewed/Reconciled?: Yes Summary/Hosp Course Brief History: 24-year-old 4 para 2-0-1-2 with intrauterine at 40 weeks and 1 day presents to [facility] complaining of labor pains and is noted to be 7 cm. She denies any leaking or bleeding. She reports normal movement. She has care with [facility] OB clinic. She denies any problems during her . Peripartum Data Delivery Method: Normal Vaginal Delivery Laceration Description: no 1: Gender: Female Time Spent with Patient Time attestation: Total time spent providing and/or coordinating discharge services: Exam Vital Signs Temp Pulse Resp BP O2 Del Method 98.0 F 109 H 17 118/63 Room Air 03/17/25 16:29 03/17/25 17:29 03/17/25 16:29 03/17/25 17:29 03/17/25 16:29 Discharge Plan Plan Patient Disposition: HOME (Self Care) Patient condition on transfer: Stable Prescriptions/Referrals Prescriptions/Med Rec: New ibuprofen 600 mg tablet 600 mg PO Q6H PRN (Reason: pain) Qty: 30 0RF Continued Alive Daily Support 180 mcg-25 mg- 25 mg tablet,chewable PO Referrals: No Primary/Family,Physician [Primary Care Provider] - Patient/Caregiver Discharge Instructions Discharge Activity: activity as tolerated Other Discharge Activity Instructions:: Follow up office 6 weeks. Print Language: Bulgarian Stand Alone Forms: Lacey Award Info., Patient Portal Info Letter Planned Discharge Date 03/19/25
--- NOTE | 2025-03-17 17:42 | OBDSUM_ITS ---
Data (Robles) Data Hx Section: No : 4 Term: 2 Livin Abortions: Spontaneous & Theraputic: 1 Delivery Data (Robles) Labor Data ROM date: 03/17/25 ROM time: 17:22 Amniotic membrane rupture type: Spontaneous Amniotic fluid description: Clear Delivery Data EDC: 03/16/25 EDC calculated by:: LMP/early US confirmation Onset of labor date: 03/17/25 [place] delivery date: 03/17/25 Gestational age (weeks): 40 Gestational age (days): 1 Placenta delivery date: 03/17/25 Delivered by: GEILING Delivery Method Delivery method: Normal Vaginal Delivery Presentation: Vertex position: OA Anesthesia Type Anesthesia Type: None Placenta Placenta delivery description: Spontaneous EBL Estimated blood loss (ml): 150 Umbilical Cord cord description: 3 Vessels and Nuchal Cord Additional Procedures None Complications Complications: None
[2025-03-17 17:52] LABS: Syphilis Nonreactive (Nonreactive)
[2025-03-17] MEDS: BENZO/LANO/ALOE (Dermoplast) 60 GM CAN 1 SPRAY TOP (19:27)
[2025-03-18 00:31] VITALS: BP 115/71; PULSE 98; RESP 19; TEMP 36.7; O2SAT 96
--- NOTE | 2025-03-18 00:56 | PC.NURSE ---
2010: LABS PROVIDED BY PATIENT VIA MOBILE APPLICATION, SEE LABS SUBMITTED TO CHART FOR MEDICAL RECORDS TO SCAN. LAB NAME, ADDRESS AND PHONE FOLLOWS: [facility] [address], [place], [place] [address]
[2025-03-18 01:23] LABS: Basophils # (Auto) 0.0 Thou/mm3 (0.0-0.2); Basophils % (Auto) 0 % (0-2.5); Eosinophils # (Auto) 0.0 Thou/mm3 (0.0-0.5); Eosinophils % (Auto) 0 % (0-10); Hematocrit 35.1 % (36.0-46.0); Hemoglobin 12.6 g/dL (12.0-16.0); Immature Granulocytes Auto 0.09 Thou/mm3 (0.00-0.00); Lymphocytes # (Auto) 2.1 Thou/mm3 (1.0-4.8); Lymphocytes % (Auto) 13 % (10-50); Mean Corpuscular HGB Conc 35.9 g/dl (31.0-37.0); Mean Corpuscular Hemoglobin 30.1 pg (25.0-35.0); Mean Corpuscular Volume 84 fL (80-100); Monocytes # (Auto) 1.2 Thou/mm3 (0.0-0.8); Monocytes % (Auto) 8 % (0-12); Neutrophils # (Auto) 12.2 Thou/mm3 (1.8-7.7); Neutrophils % (Auto) 78 % (37-80); Nucleated Red Blood Cell # 0.00 Thou/mm3 (0.00-0.00); Nucleated Red Blood Cell % 0 /100 WBC (0); Platelet Count 246 Thou/mm3 (140-440); RDW Standard Deviation 39.5 fL (36.4-46.3); Red Blood Count 4.18 Miln/mm3 (4.00-5.20); White Blood Count 15.6 Thou/mm3 (3.6-11.0)
[2025-03-18 04:17] VITALS: BP 116/70; PULSE 90; RESP 16; TEMP 36.6; O2SAT 98
[2025-03-18 08:30] VITALS: BP 109/74; PULSE 94; RESP 15; TEMP 36.8; O2SAT 98
[2025-03-18 11:53] VITALS: BP 115/71; PULSE 98; RESP 16; TEMP 36.6; O2SAT 97
[2025-03-18 16:25] VITALS: BP 113/72; PULSE 78; RESP 14; TEMP 36.6; O2SAT 98
--- NOTE | 2025-03-18 17:37 | PD.LDPPPRG ---
Subjective Subjective Interval history: Patient is a 24-year-old G 4 now P3013 status post vaginal delivery yesterday evening. Patient was delivered by Dr Giordano. She showed up 7 cm and progressed rapidly. She only got 1 dose of antibiotics for group B strep. I will discharge her home as she is stable. 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 The baby needs to be kept till tomorrow because of an inadequate course of antibiotics secondary to rapid labor. Patient is resting comfortably in bed with her baby on her chest. She is wearing her own clothes. She denies any heavy bleeding. She is breast-feeding. She states her pain is under good control. It is her third vaginal delivery. Exam Vital Signs Temp Pulse Resp BP Pulse Ox O2 Del Method 97.8 F 78 14 113/72 98 Room Air 03/18/25 16:25 03/18/25 16:25 03/18/25 16:25 03/18/25 16:25 03/18/25 16:25 03/18/25 16:25 Narrative Exam Abdomen soft nontender fundus firm extremities show no significant edema or erythema. Objective Labs 03/18/25 00:35 Labs: Laboratory Results - last 24 hr 03/17/25 03/18/25 16:37 00:35 WBC 11.0 15.6 H D RBC 4.64 4.18 Hgb 13.9 12.6 Hct 40.3 35.1 L MCV 87 84 MCH 30.0 30.1 MCHC 34.5 35.9 RDW Std Deviation 40.5 39.5 Plt Count 247 246 Neut % (Auto) 84 H 78 Lymph % (Auto) 10 13 [place] % (Auto) 5 8 Eos % (Auto) 0 0 Baso % (Auto) 0 0 Neut # (Auto) 9.3 H 12.2 H Lymph # (Auto) 1.1 2.1 [place] # (Auto) 0.5 1.2 H Eos # (Auto) 0.0 0.0 Baso # (Auto) 0.0 0.0 Immature Gran # (Auto) 0.09 H 0.09 H Absolute Nucleated RBC 0.00 0.00 Immature Gran % 1 H 1 H Nucleated RBC % 0 0 Syphilis Serology Nonreactive Blood Type O Negative Antibody Screen NEGATIVE Blood Bank Wristband ID Yes Assessment & Plan Problem List (1) Term delivered: Status: Acute Assessment and plan: Patient is doing well. She is day #1. Vital signs and hemoglobin are stable. Discharge home day #1 in stable condition. Follow-up at the [facility] clinic in 6 weeks. (2) Mother positive for group B Streptococcus colonization: Status: Acute Assessment Comment Assessment comment: The mother was only able to get 1 dose of antibiotics prior to delivery. Baby will be kept until tomorrow for observation. Time Spent With Patient Time: Total time spent is greater than 50% in coordination of care (as documented) at patient's floor/unit and/or counseling patient:
--- NOTE | 2025-03-18 17:43 | PD.LDDS ---
DS: Providers Provider Date of admission: 03/17/25 16:37 Primary care physician: Physician No Primary/Family Admitting Provider: Shamir Giordano MD Attending Provider on Admission: Shamir Giordano MD Consults: 03/17/25 20:52 Referral Routine Comment: Attending Provider on DC: Zeina Figueroa MD (OB Clinic) Discharging Provider: Zeina Figueroa MD (OB Clinic) Anticipated date of discharge: 03/18/25 DS: Diagnosis Discharge Diagnosis (1) Mother positive for group B Streptococcus colonization: Status: Acute Assessment & Plan: The patient was given 1 dose of antibiotics prior to delivery. She had a rapid labor. (2) Term delivered: Status: Acute Assessment & Plan: Patient is stable day #1. Her vital signs and hemoglobin are stable. Patient will be discharged home day #1 Problem List Completed Was Problem List Reviewed/Reconciled?: Yes Summary/Hosp Course Brief History: 24-year-old 4 para 2-0-1-2 with intrauterine at 40 weeks and 1 day presents to [facility] complaining of labor pains and is noted to be 7 cm. She denies any leaking or bleeding. She reports normal movement. She has care with [facility] OB clinic. She denies any problems during her . The patient went on to deliver soon after admission by Dr Giordano. The delivery was uncomplicated. Please see delivery notes for further details. day #1 the patient was ambulating, tolerating a general diet, breast-feeding, she had minimal bleeding. Her vital signs and hemoglobin were stable. Her pain was controlled with ibuprofen. Patient was discharged home day #1 in stable condition. Peripartum Data Delivery Method: Normal Vaginal Delivery Episiotomy Description: None complications: none Status at Discharge Cognitive/behavioral status at discharge: Patient is alert and oriented x 3 in no apparent distress Functional status at discharge: independent ambulation Overall status at discharge: patient is progressing back to baseline Time Spent with Patient Time attestation: Total time spent providing and/or coordinating discharge services: Time spent: Less than 30 minutes Specific discharge activities: Pelvic rest x 6-week Exam Vital Signs Temp Pulse Resp BP Pulse Ox O2 Del Method 97.8 F 78 14 113/72 98 Room Air 03/18/25 16:25 03/18/25 16:25 03/18/25 16:25 03/18/25 16:25 03/18/25 16:25 03/18/25 16:25 Narrative Exam Fundus is firm nontender extremities show no significant edema or erythema Discharge Plan Plan Patient Disposition: HOME (Self Care) Disposition Comment: Stable Patient condition on transfer: Stable Prescriptions/Referrals Prescriptions/Med Rec: New ibuprofen 600 mg tablet 600 mg PO Q6H PRN (Reason: pain) Qty: 30 0RF Referrals: No Primary/Family,Physician [Primary Care Provider] - Patient/Caregiver Discharge Instructions Discharge Activity: activity as tolerated Other Discharge Activity Instructions:: Follow up office 6 weeks. Other Discharge Diet Instructions: General diet. Keep taking vitamins. Drink lots of water with breast-feeding. Education Materials: After a Vaginal , Understanding Blues, Nutrition While Print Language: Wolof Activity Restrictions/Additional Instructions: Pelvic rest x 6 weeks no intercourse tampons douching swimming pools or bathtubs x 6 weeks. Stand Alone Forms: Lacey Award Info., Patient Portal Info Letter Discharge Order Discharge Orders: Discharge (Routine); Ordered 03/18/25 Ordered By: Zeina Figueroa (OB Clinic) Planned Discharge Date 03/18/25
== END 2025-03-18 18:33 | disposition home or self-care (01) | DRG 807 ==
LOC: S4SX 17:37 → S4NX 21:11 → S4SX 03-18 05:58
PROVIDERS: Admitting Provider Specialist; Visit Provider Specialist
DX: O48.0 Post-term pregnancy (principal); Z37.0 Single live birth; Z3A.40 40 weeks gestation of pregnancy; O69.81X0 Labor and delivery complicated by cord around neck, without compression, not applicable or unspecified; O62.3 Precipitate labor; O99.824 Streptococcus B carrier state complicating childbirth
CPT/HCPCS: 36415; 59025; 59409; 80307; 85025; 86703; 86762; 86780; 86850; 86900; 86901; 87340; 87491; 87591; 87661; J0290; A9270

== ENCOUNTER 2025-04-07 15:36 | Emergency (ER) | payer OTHER, SELFPAY ==
[2025-04-07 15:53] VITALS: BP 105/72; PULSE 103; RESP 18; TEMP 37.2; O2SAT 99
--- NOTE | 2025-04-07 19:08 | EDNOTE_ITS ---
<Statement entered by Annette Vaz MD - 04/07/25 22:22> As co-signing physician, I was present and available for consult prn. I concur with the plan and care as documented by the midlevel provider. ED Skin Abcess FB-RME/HPI General Chief complaint: General Adult/Misc Complain Stated complaint: I THINK I HAVE MASTITIS ON LEFT Time Seen by Provider: 04/07/25 18:39 Arrival date/time: 04/07/25 15:36 24F with no significant PMH presents to ED with several days of L breast pain. Patient recently gave and is . Limitations: no limitations Related Data Previous Rx's ?Medication ?Instructions ?Recorded ibuprofen 600 mg tablet 600 mg PO Q6H PRN pain #30 t abs 03/17/25 cephalexin 750 mg capsule 750 mg PO TID 10 days #30 ca ps 04/07/25 Allergies Allergy/AdvReac Type Severity Reaction Status Date / Time No Known Allergies Allergy Verified 04/07/25 15:40 Review of Systems Review of Systems Systems Reviewed: All systems reviewed, normal except as documented Constitutional Constitutional: Reports system reviewed and no additional complaints, except as documented, Denies fever(s) and Denies headache(s) ENT Ears, Nose, Mouth, and Throat: Denies disequilibrium and Denies headache(s) Cardiovascular Cardiovascular: Reports system reviewed and no additional complaints, except as documented, Denies chest pain and Denies dyspnea Respiratory Respiratory: Reports system reviewed and no additional complaints, except as documented, Denies cough and Denies dyspnea Gastrointestinal Gastrointestinal: Reports system reviewed and no additional complaints, except as documented, Denies abdominal pain, Denies nausea and Denies vomiting Integumentary/Breasts Skin/Breast: Reports as per HPI and Reports breast pain Neurologic Neurologic: Reports system reviewed and no additional complaints, except as documented, Denies confusion, Denies disequilibrium and Denies headache(s) Psychiatric Psychiatric: Denies confusion Past Medical History Past Medical History NEUROLOGIC: Negative Neurological Disorders, Cerebrovascular Accident, Transient Ischemic Attacks (TIA), Dementia, Alzheimer's Disease, Parkinson's Disease, Brain Tumor, Meningitis, Seizures, Epilepsy, Multiple Sclerosis, Cerebral Palsy, Amyotrophic Lateral Sclerosis (ALS/Radha Gehrig's), Guillain-Sanibel Syndrome, Spina Bifida, Paralysis, Peripheral Neuropathy, Traore's Palsy, Subdural Hematoma, Migraine, Head Trauma, Spinal Cord Injury or Traumatic Brain Injury CARDIAC: Negative Cardiac Disorders, Myocardial Infarction, Cardiac Arrhythmia, Atrial Fibrillation, Angina, Heart Murmur, Coronary Artery Disease, Atherosclerotic Heart Disease, Peripheral Vascular Disease, Hypercholesterolemia, Aneurysm, Congestive Heart Failure, Congenital Heart Disease, Valvular Heart Disease, Rheumatic Fever, Cardiomyopathy, Edema, Pericarditis, Cellulitis, Deep Vein Thrombosis, Hypertension, Hypotension or Varicose Veins RESPIRATORY: Negative Chronic Obstructive Pulmonary Disease (COPD), Asthma, Bronchitis, Emphysema, Pneumonia, Pulmonary Fibrosis, Cystic Fibrosis, Tuberculosis, Pulmonary Embolism, Pulmonary Edema or Sleep Apnea GASTROINTESTINAL: Negative Gastrointestinal Disorders, Hepatitis, Cirrhosis, Pancreatitis, Celiac Disease, Gall Bladder Disease, Gastrointestinal Bleed, Esophageal Varices, Romeo's Esophagus, Colitis, Ulcerative Colitis, Diverticulitis, Diverticulosis, Ulcer, Colorectal Cancer, Irritable Bowel, Crohn's Disease, Obstructive Bowel, Hiatal Hernia, Hemorrhoids, Gastroesophageal Reflux Disease or Obesity GENITOURINARY: Negative Genitourinary Disorders, Renal Disease, Kidney Stones, Polycystic Kidney Disease, Neurogenic Bladder, Inguinal Hernia or Dialysis REPRODUCTIVE: Negative Breast Cancer, Endometriosis, Genital Herpes, Gonorrhea, Pelvic Inflammatory Disease, Previous Pregnancies, Syphilis or Uterine Prolapse MUSCULOSKELETAL: Negative Musculoskeletal Disorders, Muscular Dystrophy, Myasthenia Gravis, Marfan's Syndrome, Bone Cancer, Arthritis, Rheumatoid Arthritis, Osteoporosis, Degenerative Disk Disease, Gout, Scoliosis, Carpal Tunnel Syndrome, Fibromyalgia, Fractures, Degenerative Joint Disease, Osteomyelitis or Poliovirus ENT: Negative Cataracts, Glaucoma, Blind, Retinal Detachment, Macular Degeneration, Ear Infection, Deafness, Head Trauma or Eye Prosthesis ENDOCRINE: Negative Endocrine Disorders, Diabetes Mellitus Type 1, Diabetes Mellitus Type 2, Hypoglycemia, [place]'s Syndrome, Ben's Disease, Hyperthyro idism, Hypothyroidism, Parathyroid Disease, Pituitary Disease, Systemic Lupus Erythematosus, Syndrome of Inappropriate Antidiuretic Hormone (SIADH), Adrenal Disease or Graves' Disease HEMATOLOGIC: Negative Blood Disorders, Anemia, Leukemia, Hemophilia, Thalassemia, Sickle Cell Disease or Clotting Problems PSYCHO/SOCIAL: Negative Psychiatric Problems, Schizophrenia, Recreational Drug Use, Bipolar Disorder, Depression, Anxiety, Behavior Problems, Self-Mutilation, Attention Deficit Disorder, Attention Deficit Hyperactivity Disorder, Depression, Post Traumatic Stress Disorder or Eating Disorder OTHER HISTORY: Negative Hospitalization, Autoimmune Disease, Down Syndrome, Autism, Developmental Delay, Shingles, Falls, Blood Transfusions, Blood Transfusion Reaction, Anesthesia Reactions, Organ Transplant, Chemotherapy, Radiation Therapy, Hyperbaric Therapy, MRSA, VRSA, Vancomycin-Resistant Enterococci, Human Immunodeficiency Virus (HIV), Chicken Pox, Measles, Mumps, Rubella (Bahamian Measles), Pertussis, Clostridium Difficile, Cancer, Breast Cancer, Cervical Cancer, Colorectal Cancer, Lung Cancer or Ovarian Cancer Family History FAMILY HISTORY: Negative Family Psychiatric Problems, Family Respiratory Disorders, Family Cardiac Disorders, Family Gastrointestinal Problems, Family Cancer, Family Surgery or Family Anesthesia Reaction Surgical History SURGICAL: Negative Cardiac Surgery, Open Heart Surgery, Coronary Artery Bypass Graft, Valve Replacement, Vascular Surgery, Coronary Stent, Cardiac Catheterization, Pacemaker, Angiogram, Auto Implanted Cardiovert Defib, Carotid Endarterectomy, Endocrine Surgery, Thyroidectomy, Ear Surgery, Tympanostomy Tube, Eye Surgery, Nose Surgery, Oral Surgery, Tonsillectomy, Adenoidectomy, Co chlear Implant, Corneal Transplant, Throat Surgery, Abdominal Surgery, Tracheostomy, Gastric Bypass Surgery, Gastrostomy, Bowel Surgery, Nephrectomy, Joint Replacement, Amputation, Open Reduction Internal Fixation, Arthroscopy, Neurologic Surgery, Brain Shunt, Lumpectomy, Hysterectomy, Tubal Ligation, Section or Organ Transplant Social History SMOKING STATUS: Never smoker SECOND HAND EXPOSURE: No ED Exam General Limitations: Present no limitations General appearance: Present alert and in no apparent distress Head Head exam: Present atraumatic Eye Eye exam: Present normal appearance, PERRL and EOMI ENT ENT exam: Present normal exam, normal oropharynx and mucous membranes moist Neck Neck exam: Present normal inspection, full ROM and trachea midline Chest Chest inspection: Present normal inspection and symmetric chest wall rise Expanded Chest Exam Breast: left: tenderness Respiratory Respiratory exam: Present normal lung sounds bilaterally Cardiovascular Cardiovascular exam: Present regular rate, normal rhythm and normal heart sounds Abdominal Exam Abdominal exam: Present soft and normal bowel sounds Extremities Exam Extremities exam: Present normal inspection and full ROM Back Exam Back exam: Present normal inspection and full ROM Neurological Exam Neurological exam: Present alert, oriented X3 and CN II-XII intact Psychiatric Psychiatric exam: Present normal affect and normal mood Skin Skin exam: Present warm, dry, intact and normal color Course Quality Measures none Vital Signs Vital signs: Vital Signs Temperature 98.9 F 04/07/25 15:53 Pulse Rate 103 H 04/07/25 15:53 Respiratory Rate 18 04/07/25 15:53 Blood Pressure 105/72 04/07/25 15:53 Pulse Oximetry (%) 99 04/07/25 15:53 Oxygen Delivery Method Room Air 04/07/25 15:53 O2 at 99% on RA and WNLs Skin / Abscess / Foreign Body MDM Narrative MDM Narrative:: 24F with no significant PMH presents to ED with several days of L breast pain. Patient recently gave and is . Physical exam with desktop engineer reveals some L breast tenderness, but no obvious area of fluctuance, redness, or swelling. Patient is afebrile, calm, and alert. Possible mild mastitis. Will send ABX, but patient prefers to treat it conservatively first. Patient data External records reviewed:: [facility] previous records Clinical information provided by:: patient Social determinants that could affect healthcare access:: none Patient has the following chronic illnesses:: none How is presenting disease/condition affected by chronic disease/condition?: no chronic disease Evaluation data The following diagnostics were reviewed and interpreted by me:: other (specify) (none) Lab and/or radiology exams considered but not ordered:: not ordered Interpretation Summary: n/a Medications / Prescriptions Medications or Prescriptions considered but not ordered:: not ordered Medication administrations:: n/a Consultations Consultation(s) initiated? (list below): No Diagnosis Skin/Abscess Differential Diagnosis: abscess of skin or subcutaneous tissue, viral exanthem, dermatophytosis, urticaria, herpes zoster, allergic reaction to drug, cellulitis, eczema, insect bites, impetigo, contact dermatitis and other (mastitis) Most likely diagnosis given after review of the tests above:: mastitis Admission Indicated Admission indicated?: not indicated Admission Request Was there a request for admission?: No Disposition Plan Disposition Plan: Discharge Discharge Attestation Discharge Attestation: The patient and all family members were given an opportunity to ask questions and understood the discharge instructions. Discharge instructions specifically effects, indications for sooner follow up or return to the emergency department, and the expected course of current diagnosis. Patient condition: Stable Discharge Plan Plan Patient Disposition: HOME (Self Care) Discharge Disposition comment: Stable Prescriptions/Referrals Prescriptions/Med Rec: New cephalexin 750 mg capsule 750 mg PO TID 10 Days Qty: 30 0RF No Action ibuprofen 600 mg tablet 600 mg PO Q6H PRN (Reason: pain) Qty: 30 0RF Problem List Clinical Impression: Nonpurulent mastitis associated with Patient/Caregiver Discharge Instructions Education Materials: ED Mastitis Additional Instructions: Please follow-up with PCP/OBGYN within 24-48 hours and return immediately if symptoms worsen. Can treat more conservatively with warm compresses and continued at first. Print Language: Slovenian Stand Alone Forms: Patient Portal Info Letter PA/[employer] Supervising Physician PA/[employer] Supervising Physician: Dr. Vaz
== END 2025-04-07 18:44 | disposition home or self-care (01) ==
PROVIDERS: Emergency Provider Emergency Medicine
DX: N61.0 Mastitis without abscess (principal)
CPT/HCPCS: 99282

== ENCOUNTER 2025-04-27 14:47 | Outpatient (AMBR) | payer OTHER, SELFPAY ==
--- NOTE | 2025-04-27 15:48 | LAC.VISIT ---
Assessment LAC OP History History Hx of Breast Surgery: No Hx of Breast Feeding Problems: No History Comment: mom states she breastfed both pervious babies. but this baby has had issues since the beginning. LAC Pain Pain Bilateral Nipple: Pain Intensity: Severe (7-10) Character of Pain: Burning and Sharp Pain Comment: mom had severe pain any time that she would do try to breastfed baby. so severe she couldn't stand more than a few minutes Alternative Milk Expression Alternative Milk Expression Alternative Method Used: Yes Method Used: Pumping Alternative Method Comment: mom has been exclusively pumping since day 2 post , since tax director was worried about weight loss greater than 10 %. Alternative Method Used Reason: Poor Feeding Alternative Method Produced Milk / Colostrum: Yes Production Amount: 80 Production ounces or mls: ounces Pump Used: Electric Pumping Frequency Per Day: 8 Pumping Frequency Comment: mom has over production and has helped with donations to [employer]. mom states that she pumps 80-100 ounces in a 24 hour period LAC Assessment Breast Feeding Assessment Breast Feeding Comment: Mom states that baby feeds from a bottle fairly well, does not like the pacifier. She is growing appropriately per tax director. LAC Intervention Discharge Follow Up Appointment Date and Time: as needed Other Referral Made: Yes Feeding Preference at Discharge: Exclusive Pumped Brst Mlk LAC Oral Assessment Oral Assessment Prenulum Level: Posterior Lip: Tight Upper Lip Palate: High Dental Referral made: Yes OP DC Assessment Discharge Follow Up Appointment Date and Time: as needed Other Referral Made: Yes Visit Complete?: Yes
== END 2025-05-16 23:59 | disposition home or self-care (01) ==
LOC: HODLAC 14:47
DX: Z39.1 Encounter for care and examination of lactating mother (principal)

== ENCOUNTER 2025-05-12 10:45 | Outpatient (AMB) | payer OTHER, SELFPAY ==
[2025-05-12 11:05] VITALS: BP 110/68; PULSE 79; RESP 16; TEMP 36.4; O2SAT 96; BMI 24.7
--- NOTE | 2025-05-12 11:05 | AMB.OBPP ---
Vital Signs 05/12/25 11:05 Height 1.68 m Height Method Stated Weight 69.57 kg Weight Measurement Method Standing Scale BMI 24.7 BP 110/68 Blood Pressure Source Automatic Cuff Blood Pressure Location Left Upper Arm Position Sitting Respiration 16 Pulse 79 Pulse Source Monitor Temp 97.5 F Temp Source Oral Pulse Oximetry (%) 96 Oxygen Delivery Method Room Air Allergies/Home Meds Allergies & Medications Allergies No Known Allergies Allergy (Verified 05/12/25 11:09) Medication Reconciliation nystatin 100,000 unit/gram topical cream 1 applic topical BID #30 grams 05/12/25 [Rx] Intake Visit Data Collection New Patient or Established: Established Patient (seen at [facility] within 3 years) Reason for Visit:: Seen by Clinical Staff ONLY (RN/MA): No Assistant Program Director Required: No Do You Feel Safe at Home: Yes Authorities Contacted: N/A PCP or OBGYN visit in last 3 months: Yes Hx Now: No Are you currently on any form of Control: No Pain Present Currently: No Pain Scale Used: Amaro-Archibald/Numerical Pain scale:: 0 Smoking Status Smoking Status: Never smoker CITRUS PICKER: Past Medical History Past Medical History: No Hx Neurological Disorders, No Hx Hypothyroidism, No Hx Hyperthyroidism, No Hx Breast Cancer, No Hx Cardiac Disorders, No Hx Hypertension, No Hx Cancer, No Hx Blood Disorders, No Hx Anemia, No Hx Gastrointestinal Disorders, No Hx Renal Disease, No Hx Deep Vein Thrombosis, No Hx Diabetes Mellitus Type 1, No Hx Diabetes Mellitus Type 2, No Hx Tubal Ligation, No Hx Hysterectomy and No Psychiatric Problems Questionnaires Covid-19 Vaccine Questionnaire Has patient been vacinated for Covid-19 Have you been vacinated for Covid-19: Yes Social History Living Situation History Lives With: Family Housing: trailer Tobacco History Smoking Status: Never smoker Second Hand Smoke Exposure: No Alcohol History Alcohol Intake: Never Domestic Abuse History Do You Feel Safe at Home: Yes EPDS - PP Depression Screening Wilcox Pospartum Depression Screen I have been able to laugh and see the funny side of things: (0) As much as I always could I have looked forward with enjoyment to things: (1) Rather less than I used to I have blamed myself unnecessarily when things went wrong: (0) No, never I have been anxious or worried for no good reason: (1) Hardly ever I have felt scared or panicky for no very good reason: (0) No, not at all Things have been getting on top of me: (0) No, I have been coping as well as ever I have been so unhappy that I have had difficulty sleeping: (0) No, not at all I have felt sad or miserable: (0) No, not at all I have been so unhappy that I have been crying: (0) No, never The thought of harming myself has occurred to me: (0) Never Total Score: EPDS Score: Referral is indicated for score of 9 or more, suicidal, or if provider believes patient is depressed regardless of score.: 0 EPDS completed yes Care OB Visit Log OB Flowsheet Initial Weight: Not Recorded Date <del>?</del> EGA Weight BP Alb Glu CTX Pres Fundal ht FHR Mov Dilation Station Effacement Hx Notes Visit Note 01/28/25 <del>?</del> 33w 2d 79.605 kg 120/72 absent cephalic 34 145 active 24-year-old 4 para 2 for new OB appointment. Patient has been seen in [place] for care. No records available at this time. However patient reports that her records on her phone and she will get those printed out. Patient reports that her has been uneventful. Patient is Rh- and she received RhoGAM. Patient also reported that her 1 hour GTT and carrier screens were negative. That all her labs were normal. Return in 2 weeks visit 02/11/25 <del>?</del> 35w 2d 80.343 kg 126/72 at approximately 35 weeks gestation, presents for routine care. Reports transient contractions that resolved spontaneously and notes a ?weird smell? in the vaginal area without discharge or itching. Rh-negative; received RhoGam at 28 weeks. Transferred care from [place]. heart tones 148 bpm, reassuring. Plan: Prescriptions sent to [facility] to empirically treat for both bacterial vaginosis and yeast. Patient instructed to follow up in one week with YONATHAN Sanderson. GBS culture to be performed at 36 weeks. Reviewed labor precautions including onset of regular contractions every 5 minutes lasting over an hour. Provided routine education on labor signs, importance of nutrition, hydration, and rest. 02/18/25 <del>?</del> 36w 2d 80.002 kg 119/75 occasional cephalic 36 140 active 1 -3 50 increased pressure, ligament pain and cramps. fetus active, increase vag discharge. patient did not p/u meds,denies leaking or bleeding GBS and nuswab today. advised to p/u meds and start them, labor precaution and danger s/s discussed, fkc bid,rtc 1 week obc GBS and nuswab today. advised to p/u meds and start them, labor precaution and danger s/s discussed, fkc bid,rtc 1 week obc, do growth sono NV, patient will call previous clinic for lab results 02/25/25 <del>?</del> 37w 2d 79.038 kg 115/72 occasional cephalic 37 145 active fetus active, increased pressure, no leaking or bleeding, reviewed labs on lab portal with patient schedule OB sono for s/d and evaluate heart, discuss labor precaution, fkc bid. , increase fluid,rtc 1 week obc 03/03/25 <del>?</del> 38w 1d 79.095 kg 119/76 occasional cephalic 38 156 active fetus active, denies LOF/VN/ROM, pressure discuss GBS+. discuss labor precaution and ER precaution, FKC BID and danger s/s reviewed, rtc 1 wk obc 03/12/25 <del>?</del> 39w 3d 80.91 kg 114/76 occasional cephalic 40 154 active No CTX/LOF/VB, good FM. GBS positive, cephalic presentation. No more office visits. Induction scheduled 03/20 if no labor. Go to L&D for CTX/LOF/VB/?FM. GBS prophylaxis during labor. Admission labs (UA, CBC, RPR) to be done at hospital. DANNA Calculator Estimated Delivery Date Method Current WG Current Estimate 03/16/25 LMP (Certain) 48w 1d Notes Visit Date: 03/03/25 Last Updated by: Elyssa Sanderson CNM 03/03:GBS+ Visit Date: 02/25/25 Last Updated by: Elyssa Sanderson CNM 26 yo ,sono 10/27/14 IUO 19w5. EDC 03/16/25. LMP 06/10/24, cbc: 12/37/275, RPR::NR, 1 hr gtt wnl, NIPT-, O+,abs-, hBSAG-,HC-,HIV-, rub imm, gc/ct- Visit Date: 02/18/25 Last Updated by: Elyssa Sanderson CNM 24 yo . lmp 06/09/24. EDC 03/16/25 HPI Interval History: 24-year-old 3 para 3 for 6-week . Patient had a vaginal March 17, 2025. She had a baby girl weighing 8 pounds 11. She is pumping and breast-feeding. She had sex 2 weeks ago unprotected. She plans to use withdrawal. Siblings are adjusting. Patient is happy, no complaints of depression. Limited help. She has no interval complaints. Was or delivery considered high risk: No Delivery type: vaginal Was labor induced: no Gestational age at delivery (weeks): 40.2 Delivery date: 03/17/25 Delivering provider: marah Delivery complications: No Is patient infant: Yes Is patient sexually active: Yes Contraception planned: withdrawl Review of Systems Review of Systems ROS limited to current CITRUS PICKER complaints: Yes Exam Narrative Physical exam: Normal heart rate and rhythm. Lungs clear no wheezes. Abdomen is soft nontender. Uterus well involuted. Perineum is intact no lacerations. No swelling. Small lochia. Negative Homans' sign. 2+ DTRs. No edema no swelling. Breasts are soft General Limitations: no limitations General Appearance: alert, in no apparent distress, comfortable, cooperative, healthy appearing, well developed and well groomed Head Head exam: atraumatic, normocephalic and normal inspection ENT ENT exam: Present normal exam, normal oropharynx and mucous membranes moist Neck Neck exam: Present normal inspection, full ROM and trachea midline Chest Chest inspection: Present normal inspection and symmetric chest wall rise Resp Respiratory exam: Present normal lung sounds bilaterally Abdominal Abdominal exam: Present soft and normal bowel sounds Psych Psychiatric exam: Present normal affect and normal mood Office Procedures OB Clinic LOC & Office Proc's Nursing/Assessment Patient Status: Established Patient OB Clinic Nursing Assessment: Medication Reconciliation, Update PMH in EMR and Vital Signs OB Clinic Coordination of Care: Complex Care and Chronic Disease 1-5, Consent,records obtained, informed consent, Education Simp Pt/Fam, Lab and Imaging orders, Results/Orders obtained and Staff clarify orders Established Patient Charge Established Patient Point Assignment: 105 Established Patient Point Charge: EP Level 3 (80-115) Assessment & Plan Diagnosis / Problem List (1) 6 weeks follow-up: Status: Acute Plan Discussed contraceptive options. Reviewed withdrawal and natural family-planning with patient. Continue prenatals. Okay to start diet and exercise. Increase fluids. Discussed signs of mastitis. I gave patient nystatin to put on her left breast. Return as needed for Pap or contraception Care Reviewed delivery summary and any complications: Yes Uterus involuted to: 4 below umb Perineal / incision healing noted: Yes Screened for depression: Yes Depression counseling provided: No Discussed family planning & contraception: Yes Contraception planned: withdrawl Counseling on safe resumption of sexual activity: Yes Counseling on gradual excercise: Yes Discussed and concerns (describe), provided support: Yes Referred to material control specialist: Yes Counseled on good nutrition, hydration, and self care: Yes Reviewed vaccine status: No Chronic & current problems reconciled on problem list: Yes Infant care discussed; questions answered: feeding and sleep Follow up: routine/prn
== END 2025-05-12 11:43 | disposition home or self-care (01) ==
LOC: HODSOBC 10:45
PROVIDERS: Supervising Provider Advanced Practice Midwife; Visit Provider Advanced Practice Midwife
DX: Z39.2 Encounter for routine postpartum follow-up (principal); Z39.1 Encounter for care and examination of lactating mother
CPT/HCPCS: 99213; G0463